=== PATIENT | female | born 2000 | race Caucasian/White ===

== ENCOUNTER 2021-03-27 16:36 | Emergency (ER) | payer OTHER ==
[~2021-03-27] VITALS: Ht 172.7 cm; Wt 72.7 kg
[2021-03-27 16:55] VITALS: TEMP 98.3
[2021-03-27] MEDS ORDERED: LINZESS145CAP PO (17:01)
[2021-03-27] MEDS ORDERED: UBRELVY100 MG PO (17:02)
[2021-03-27] MEDS ORDERED: ATARAX50 MG PO (17:02)
[2021-03-27] MEDS ORDERED: TOPAMAX 100MG100 M1 PO (17:03)
[2021-03-27] MEDS ORDERED: LEXAPRO20 MG PO (17:03)
[2021-03-27] MEDS ORDERED: ABILIFY5 MG PO (17:04)
[2021-03-27] MEDS ORDERED: MOBIC15 MG PO (17:04)
[2021-03-27] MEDS ORDERED: VITAMIN D 50,1.25 MG PO (17:05)
[2021-03-27] MEDS ORDERED: PLAQUENIL 200M200 MG PO (17:05)
[2021-03-27] MEDS ORDERED: EMGALITY120 MG/1 M SQ (17:06)
[2021-03-27] MEDS ORDERED: PHENERGAN W/CO120 M1 PO (17:44)
[2021-03-27] MEDS ORDERED: PREDNISONE20 MG PO (17:45)
[2021-03-27 19:47] VITALS: BP 110/76; PULSE 80
== END 2021-03-27 19:47 | disposition home or self-care (01) ==
LOC: COL.ER 16:36
DX: U07.1 COVID-19 (principal); F17.290 Nicotine dependence, other tobacco product, uncomplicated